=== PATIENT | female | born 1990 | race Caucasian/White ===

== ENCOUNTER 2018-07-26 23:05 | Emergency (ER) | payer SELFPAY ==
[~2018-07-26] VITALS: Ht 149.9 cm; Wt 59.0 kg
[2018-07-27] MEDS ORDERED: LIDOCAINE 1% INJ 50 ML MDV IJ ONE (01:56)
[2018-07-27 02:32] VITALS: BP 97/67
== END 2018-07-27 02:33 | disposition home or self-care (01) ==
LOC: ER 23:06
DX: H60.02 Abscess of left external ear (principal); J02.9 Acute pharyngitis, unspecified; J45.909 Unspecified asthma, uncomplicated; F17.200 Nicotine dependence, unspecified, uncomplicated; Z88.0 Allergy status to penicillin
CPT/HCPCS: 69000; 71045; 87070; 87880; 99284; A4606; A6403; J3490; Z7610; 86403-TC